=== PATIENT | female | born 1995 ===

== ENCOUNTER → 2022-05-22 | Outpatient (CLI) | payer OTHER | END | disposition home or self-care (01) | LOC: LAB SHORT 14:16 → LAB 14:16 | DX: J02.9 Acute pharyngitis, unspecified (principal) | CPT/HCPCS: 87081; 87147 ==

== ENCOUNTER → 2025-05-18 | Outpatient (CLI) | payer OTHER | LOC: LAB SHORT 11:16 → LAB 11:16 | PROVIDERS: Advanced Practice Midwife | DX: Z01.419 Encounter for gynecological examination (general) (routine) without abnormal findings (principal) | CPT/HCPCS: 87624; G0145 ==